=== PATIENT | female | born 1940 | race Caucasian/White ===

== ENCOUNTER → 2019-09-17 12:45 | Outpatient (BNVA) | payer MEDICARE, OTHER, SELFPAY | PROVIDERS: Family Provider Nurse Practitioner; PCP Nurse Practitioner; Visit Provider Nurse Practitioner | DX: I10 Essential (primary) hypertension (principal); E55.9 Vitamin D deficiency, unspecified; I69.30 Unspecified sequelae of cerebral infarction; E78.2 Mixed hyperlipidemia; R39.11 Hesitancy of micturition; I35.0 Nonrheumatic aortic (valve) stenosis; J41.1 Mucopurulent chronic bronchitis | CPT/HCPCS: 80053; 80061; 82306 ==

== ENCOUNTER → 2019-12-25 10:37 | Outpatient (BNVA) | payer MEDICARE, OTHER, SELFPAY | PROVIDERS: Family Provider Nurse Practitioner; PCP Nurse Practitioner; Visit Provider Nurse Practitioner | DX: E55.9 Vitamin D deficiency, unspecified (principal); I10 Essential (primary) hypertension; J20.9 Acute bronchitis, unspecified; J42 Unspecified chronic bronchitis | CPT/HCPCS: 80053; 80061; 82306; 85025 ==

== ENCOUNTER → 2020-06-24 09:19 | Outpatient (BNVA) | payer MEDICARE, OTHER, SELFPAY | PROVIDERS: Family Provider Nurse Practitioner; PCP Nurse Practitioner; Visit Provider Nurse Practitioner | DX: I10 Essential (primary) hypertension (principal); J41.1 Mucopurulent chronic bronchitis; I69.30 Unspecified sequelae of cerebral infarction; E78.2 Mixed hyperlipidemia; R39.11 Hesitancy of micturition; B37.2 Candidiasis of skin and nail | CPT/HCPCS: 80053; 80061; 85025 ==

== ENCOUNTER → 2020-10-27 08:23 | Outpatient (BNVA) | payer MEDICARE, OTHER, SELFPAY | PROVIDERS: Family Provider Nurse Practitioner; PCP Nurse Practitioner; Visit Provider Nurse Practitioner | DX: R39.11 Hesitancy of micturition (principal); K57.92 Diverticulitis of intestine, part unspecified, without perforation or abscess without bleeding | CPT/HCPCS: 81003 ==

== ENCOUNTER → 2021-06-11 11:17 | Outpatient (BNVA) | payer MEDICARE, OTHER, SELFPAY | PROVIDERS: Family Provider Nurse Practitioner; PCP Nurse Practitioner; Visit Provider Nurse Practitioner | DX: E78.2 Mixed hyperlipidemia (principal); I10 Essential (primary) hypertension; Z23 Encounter for immunization; E55.9 Vitamin D deficiency, unspecified | CPT/HCPCS: 80053; 80061; 82306; 85025 ==

== ENCOUNTER → 2022-06-17 10:08 | Outpatient (BNVA) | payer MEDICARE, OTHER, SELFPAY | PROVIDERS: Family Provider Nurse Practitioner; PCP Nurse Practitioner; Visit Provider Nurse Practitioner | DX: I10 Essential (primary) hypertension (principal) | CPT/HCPCS: 80053; 80061; 85025 ==